=== PATIENT | female | born 1980 | race Caucasian/White ===

== ENCOUNTER 2021-05-30 14:23 | Outpatient (CLI) | payer OTHER | END 2021-05-30 14:24 | disposition home or self-care (01) | LOC: BICULT 14:23 | PROVIDERS: ATTEND Nurse Practitioner Adult Health | DX: R19.09 Other intra-abdominal and pelvic swelling, mass and lump (principal); Z86.19 Personal history of other infectious and parasitic diseases | CPT/HCPCS: 76856 ==